=== PATIENT | female | born 1990 | race Caucasian/White ===

== ENCOUNTER 2022-08-25 11:42 | Day surgery (SDC) | payer MEDICARE ==
[2022-08-25] MEDS ORDERED: LIDOCAINE HCL 1% 50 MG/5 ML VL PF IJ ONE (11:43)
[2022-08-25] MEDS ORDERED: Reglan 10 MG/2 ML ONE (12:09)
[2022-08-25] MEDS ORDERED: Pepcid 20 MG VIAL IV ONE (12:09)
[2022-08-25] MEDS ORDERED: Versed 2 MG/2 ML Injection ONE ×3 (12:58→13:33)
[2022-08-25] MEDS ORDERED: Lactated Ringers 1,000 ML IV ONE (14:06)
--- NOTE | 2022-08-25 16:16 | XRAY ---
Indication: Left C2 MBB. Intraoperative fluoroscopy provided for 7 seconds. Single digital spot image submitted for interpretation is centered over skull/mandible and does not include cervical spine. Correlate with intraoperative findings/report.
--- NOTE | 2022-08-25 16:35 | XRAY ---
7 seconds of fluoroscopy was used in surgery for a left C2 MBB.
== END 2022-08-25 14:00 | disposition home or self-care (01) ==
LOC: SDC-PAIN 11:42
PROVIDERS: ATTEND Psychiatry & Neurology Pain Medicine
DX: M47.812 Spondylosis without myelopathy or radiculopathy, cervical region (principal); E11.9 Type 2 diabetes mellitus without complications; Z79.899 Other long term (current) drug therapy
CPT/HCPCS: 64490; 64491; 72040; 77002; 81025; 82947; J2001; J2250